=== PATIENT | female | born 1960 | race Caucasian/White ===

== ENCOUNTER 2017-06-22 16:36 | Emergency (ER) | payer OTHER ==
[~2017-06-22] VITALS: Ht 167.6 cm; Wt 59.0 kg
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
== END 2017-06-22 19:20 | disposition home or self-care (01) ==
LOC: CED 16:36 → CFTX 16:36
DX: S13.4XXA Sprain of ligaments of cervical spine, initial encounter (principal); S33.5XXA Sprain of ligaments of lumbar spine, initial encounter; S80.02XA Contusion of left knee, initial encounter; S80.01XA Contusion of right knee, initial encounter; F17.200 Nicotine dependence, unspecified, uncomplicated; I10 Essential (primary) hypertension; M79.7 Fibromyalgia; I25.2 Old myocardial infarction; Z88.2 Allergy status to sulfonamides; Z79.899 Other long term (current) drug therapy; V43.52XA Car driver injured in collision with other type car in traffic accident, initial encounter; Y92.410 Unspecified street and highway as the place of occurrence of the external cause
CPT/HCPCS: 29530; 72040; 72072; 72100; 73562; 99284